=== PATIENT | female | born 1995 | race African-American/Black ===

== ENCOUNTER 2018-02-28 15:50 | Emergency (ER) | payer OTHER ==
[~2018-02-28] VITALS: Ht 157.5 cm; Wt 90.9 kg
[2018-02-28 15:54] VITALS: BP 114/61; PULSE 88; TEMP 98.5
[2018-02-28] MEDS ORDERED: CRUTCHES MC (16:27)
== END 2018-02-28 16:42 | disposition home or self-care (01) ==
LOC: COL.ER 15:50
DX: S93.401A Sprain of unspecified ligament of right ankle, initial encounter (principal); X50.0XXA Overexertion from strenuous movement or load, initial encounter; Y92.410 Unspecified street and highway as the place of occurrence of the external cause